=== PATIENT | female | born 1965 | race Caucasian/White ===

== ENCOUNTER 2019-11-26 15:25 | Inpatient (IN) | payer MEDICAID ==
[~2019-11-26] VITALS: Ht 177.8 cm; Wt 74.8 kg
[2019-11-26 15:59] VITALS: BP 209/111
--- NOTE | 2019-11-26 16:18 | NUR ---
Patient ambulated to bed 8. RN evaluating patient at bedside.
--- NOTE | 2019-11-26 16:55 | NUR ---
53 Y/O FEMALE PRESENTS TO THE ER WITH C/O OF SOB DUE TO LUQ HERNIA. BILATERAL FOOT EDEMA +1 W/ DRY CRACKED FEET, PT STATES HER FEET ARE PAINFUL, AND TTP. RATES PAIN AT 9/10. R/R EQUAL AND UNLABORED, NON-PRODUCTIVE COUGH NOTED. CONGESTION AUDIBLE, BUT LUNGS SOUNDS CLEAR TO AUSCULTATION, IN BILATERAL LUNG. HYPOACTIVE BOWEL SOUNDS IN Q 4 QUADRANTS. C/O NAUSEA, DENIES VOMITUS, OR DIARRHEA. UNABLE TO PALPATE PULSES IN BLE. NKDA PMH: QUADRUPLE BY PASS, CARDIAC WINDOW, AND STENT, HTN, HYPOTHYROIDISM
[2019-11-26] MEDS ORDERED: ASPIRIN 325 MG TAB PO ONE (17:05)
[2019-11-26] MEDS ORDERED: NITROGLYCERIN 0.4 MG TAB SL ONE (17:05)
--- NOTE | 2019-11-26 17:05 | NUR ---
PT BP 209/111, DR. GARCIA NOTIFIED
--- NOTE | 2019-11-26 17:05 | NUR ---
PT GIVEN ONE NITRO SUBLINGUAL PER MD ORDER
[2019-11-26] MEDS ORDERED: LISINOPRIL 20 MG TAB PO ONE (17:25)
[2019-11-26] MEDS ORDERED: ALBUTEROL SULFATE/IPRATROPIU 3 ML SOL IH ONE (17:25)
[2019-11-26 17:53] LABS: BASOPHILS # (AUTO) 0.1 K/uL (0.00-0.22); EOSINOPHILS # (AUTO) 0.1 K/uL (0-0.4); EOSINOPHILS % (AUTO) 1.8 % (0.0-4.0); HEMATOCRIT 39.7 % (36-48); HEMOGLOBIN 13.6 g/dL (12.0-16.0); LYMPHOCYTES # (AUTO) 0.9 K/uL (2.5-16.5); LYMPHOCYTES % (AUTO) 14.2 % (20.5-51.1); MEAN CORPUSCULAR HEMOGLOBIN 31 pg (27-31); MEAN CORPUSCULAR HGB CONC 34 g/dL (33-37); MEAN CORPUSCULAR VOLUME 89.1 fL (80-94); MONOCYTES # (AUTO) 0.3 K/uL (0.8-1.0); MONOCYTES % (AUTO) 4.9 % (1.7-9.3); NEUTROPHILS # (AUTO) 5.1 K/uL (1.8-7.7); NEUTROPHILS % (AUTO) 78.1 % (42.2-75.2); PLATELET COUNT (AUTO) 187 K/uL (140-450); RED BLOOD CELL COUNT(AUTO) 4.45 MIL/uL (4.20-5.40); WHITE BLOOD COUNT (AUTO) 6.5 K/uL (4.8-10.8)
[2019-11-26 18:01] LABS: ALBUMIN 3.6 g/dL (3.4-5.0); ANION GAP 12.6 (8-16); CARBON DIOXIDE 27.5 mmol/L (21-32); CREATININE 1.4 mg/dL (0.6-1.3); POTASSIUM 4.1 mmol/L (3.5-5.1); PROTHROMBIN TIME 9.3 secs (10.8-13.4); TOTAL BILIRUBIN 0.2 mg/dL (0.0-1.0)
--- NOTE | 2019-11-26 18:47 | NUR ---
PT SITTING UPRIGHT, DENIES PAIN AT THIS TIME. R/R UNLABORED AND EQUAL. FAMILY SITTING AT THE BEDSIDE. SIDERAIL X2 WILL CONTINUE TO MONITOR.
[2019-11-26] MEDS ORDERED: hydrALAZINE 20 MG/ML VIAL IVP ONE (18:50)
[2019-11-26] MEDS ORDERED: LISI30TA6 PO (19:15)
[2019-11-26] MEDS ORDERED: SYN.1 PO (19:15)
--- NOTE | 2019-11-26 19:25 | NUR ---
PT DENIES CHEST PAIN AT THIS TIME; STILL HYPERTENSIVE BUT IMPROVED BP AFTER IV HYDRALAZINE 168/103. PT STATES SHE STILL FEELS SOB; BUT THIS HAS IMPROVED SINCE BEING IN THE ER. BREATHING IS MORE DIFFICULT WHEN SITTING UP. LS BILATERALLY DIMINISHED WITH SLIGHT EXP WHEEZES. C/O HUNGER AND ASKING FOR FOOD. WILL CONTINUE TO MONITOR.
[2019-11-26] MEDS ORDERED: DOCUSATE SODIUM 100 MG GELCAP PO PRN (19:55)
[2019-11-26] MEDS ORDERED: HYDROcodone/APAP 7.5/325 MG 1 TAB PO PRN (19:55)
[2019-11-26] MEDS ORDERED: ONDANSETRON 4 MG/2 ML VIAL IM/IVP PRN (19:55)
--- NOTE | 2019-11-26 20:15 | NUR ---
Patient will be admitted to care of DR CARRERA. Admited to TELEMETRY. Will go to room 105A. Belongings list completed. Report to AL SARAVIA.
--- NOTE | 2019-11-26 20:20 | NUR ---
RECEIVED PATIENT FROM ER VIA GURNEY IN STABLE CONDITION. RESPIRATIONS EVEN, UNLABORED. TELE MONITOR IN PLACE. SKIN WARM, DRY. SKIN ASSESSMENT COMPLETED. OLD SCARS ON BILATERAL HEELS NOTED. IV SITE TO LEFT FOREARM 20G PATENT/INTACT. PATIENT IS AMBULATORY. NO C/O PAIN. NO S/SX ACUTE DISTRESS. MRSA SCREEN COMPLETED. PATIENT ORIENTED TO ROOM, CALL LIGHT AND STAFF. ALL NEEDS MET. CALL LIGHT WITHIN REACH. WILL CONTINUE TO MONITOR.
[2019-11-26 20:30] VITALS: BP 135/118
[2019-11-26 20:31] LABS: BARBITURATE, URINE NEG. ng/ml (NEG <=200); BENZODIAZEPINE, URINE NEG. ng/mL (NEG <=200); CANNABINOID, URINE POS. ng/mL (NEG <=50); COCAINE, URINE NEG. ng/mL (NEG <=300); OPIATE, URINE NEG. ng/mL (NEG <=2000); PHENCYCLIDINE SCREEN,URINE NEG. ng/mL (NEG <=25)
[2019-11-26] MEDS ORDERED: NITROGLYCERIN 0.4 MG TAB SL PRN (21:00)
[2019-11-26 21:22] LABS: APPEARANCE,URINE CLEAR (CLEAR); BILIRUBIN,URINE NEGATIVE (NEGATIVE); BLOOD, URINE TRACE-I (NEGATIVE); COLOR,URINE YELLOW (YELLOW); LEUKOCYTE ESTERASE ,URINE NEGATIVE (NEGATIVE); NITRITE, URINE NEGATIVE (NEGATIVE); PH,URINE 6.5 (5.0-9.0); UGLUCOSE NEGATIVE (NEGATIVE)
[2019-11-26] MEDS ORDERED: FUROSEMIDE 40 MG/4 ML VIAL IVP ONE (21:30)
[2019-11-26 21:31] LABS: RBC,URINE 0-5 /HPF (0-5); WBC,URINE 0-5 /HPF (0-5)
[2019-11-26 21:32] LABS: YEAST,URINE Few /HPF (None Seen)
[2019-11-26] MEDS ORDERED: ALBUTEROL SULFATE/IPRATROPIU 3 ML SOL IH PRN (21:35)
[2019-11-26] MEDS: METOPROLOL 25 MG TAB PO SCH (21:36)
[2019-11-26] MEDS ORDERED: cefTRIAXone 1,000 MG VIAL ONE (21:42)
[2019-11-26] MEDS: DEXT 5% /NACL 0.9% 1,000 ML IV SCH (21:48)
[2019-11-26] MEDS ORDERED: KCL 20 MEQ/WATER INJ PREMIX 200 ML IV PRN (21:55)
[2019-11-26] MEDS: NICOTINE TRANSD SYS 14 MG/24 HR PATCH TD SCH (22:10)
[2019-11-26 22:30] LABS: CHOL/HDL RATIO 4.5 (1-4.5); FREE T4 (FREE THYROXINE) 0.31 ng/dL (0.76-1.46); MAGNESIUM 2.2 mg/dL (1.8-2.4); PHOSPHORUS 3.4 mg/dL (2.5-4.9); THYROID STIMULATING HORMONE 335.89 uIU/mL (0.34-3.74)
--- NOTE | 2019-11-26 22:59 | NUR ---
PATIENT ASLEEP IN BED. DUE MEDS GIVEN. IV FLUIDS INFUSING WELL. NO C/O PAIN. NO S/SX ACUTE DISTRESS NOTED. CALL LIGHT WITHIN REACH. WILL CONTINUE TO MONITOR.
[2019-11-26] MEDS ORDERED: LEVOTHYROXINE 0.1 MG TAB PO ONE (23:15)
[2019-11-26] MEDS ORDERED: ATORVASTATIN 20 MG TAB PO ONE (23:20)
[2019-11-26] MEDS: ALBUTEROL SULFATE/IPRATROPIU 3 ML SOL IH SCH (23:40)
[2019-11-27] VITALS: BP 137/88
--- NOTE | 2019-11-27 00:29 | NUR ---
PATIENT RESTING COMFORTABLY IN BED. NO C/O PAIN. NO S/SX ACUTE DISTRESS. DUE MEDS GIVEN. CALL LIGHT WITHIN REACH. WILL CONTINUE TO MONITOR.
--- NOTE | 2019-11-27 01:06 | NUR ---
PATIENT ASLEEP AND IN STABLE CONDITION. NO C/O PAIN. NO S/SX ACUTE DISTRESS. CALL LIGHT WITHIN REACH. WILL CONTINUE TO MONITOR.
--- NOTE | 2019-11-27 01:20 | NUR ---
PT SLEEPING, HR WENT DOWN ON THE 40'S BPM, PT EASILY AROUSABLE, ASYMPTOMATIC, DENIES ANY PAIN, NO SOB NOTED, MONITORED CLOSELY. Addendum: 11/28/19 at 0125 by Iain Glover RN CHARTED WRONG TIME
--- NOTE | 2019-11-27 03:00 | NUR ---
PATIENT ASLEEP AND IN STABLE CONDITION. NO C/O PAIN. NO S/SX ACUTE DISTRESS. CALL LIGHT WITHIN REACH. WILL CONTINUE TO MONITOR.
[2019-11-27 04:00] VITALS: BP 135/75
--- NOTE | 2019-11-27 05:21 | NUR ---
MADE ROUNDS. PATIENT ASLEEP AND IN STABLE CONDITION. NO C/O PAIN. NO S/SX ACUTE DISTRESS. CALL LIGHT WITHIN REACH. WILL CONTINUE TO MONITOR.
[2019-11-27] MEDS: ALBUTEROL SULFATE/IPRATROPIU 3 ML SOL IH SCH ×3 (06:52→20:41)
--- NOTE | 2019-11-27 07:05 | NUR ---
REPORT RECEIVED FROM NIGHT NURSE. PT AWAKE IN BED AAOX4, NO DISTRESS NOTED, DENIES PAIN. RESPIRATIONS EVEN AND UNLABORED ON ROOM AIR. IV IN PLACE IN L AC 20G PATENT AND ASYMPTOMATIC INFUSING PER ORDER. BILATERAL HEEL WOUNDS PRESENT, CLOSED. NPO EXCEPT MEDS STATUS. SAFETY MEASURES IN PLACE. CALL LIGHT WITHIN REACH. BED IN LOW POSITION. WILL CONTINUE TO MONITOR.
[2019-11-27 08:00] VITALS: BP 165/94
[2019-11-27] MEDS ORDERED: FLUCONAZOLE 100 MG TAB PO SCH (08:00)
[2019-11-27 08:03] LABS: ANION GAP 12.7 (8-16); CREATININE 1.4 mg/dL (0.6-1.3); POTASSIUM 3.7 mmol/L (3.5-5.1)
[2019-11-27 08:17] LABS: BASOPHILS # (AUTO) 0.1 K/uL (0.00-0.22); EOSINOPHILS # (AUTO) 0.2 K/uL (0-0.4); EOSINOPHILS % (AUTO) 2.8 % (0.0-4.0); HEMOGLOBIN 14.9 g/dL (12.0-16.0); LYMPHOCYTES # (AUTO) 1.1 K/uL (2.5-16.5); LYMPHOCYTES % (AUTO) 17.6 % (20.5-51.1); MEAN CORPUSCULAR HEMOGLOBIN 31 pg (27-31); MEAN CORPUSCULAR HGB CONC 35 g/dL (33-37); MEAN CORPUSCULAR VOLUME 89.5 fL (80-94); MONOCYTES # (AUTO) 0.3 K/uL (0.8-1.0); MONOCYTES % (AUTO) 4.6 % (1.7-9.3); NEUTROPHILS # (AUTO) 4.6 K/uL (1.8-7.7); PLATELET COUNT (AUTO) 193 K/uL (140-450); RED BLOOD CELL COUNT(AUTO) 4.81 MIL/uL (4.20-5.40); RED CELL DISTRIBUTION WIDTH 14.9 % (11.6-13.7); WHITE BLOOD COUNT (AUTO) 6.4 K/uL (4.8-10.8)
--- NOTE | 2019-11-27 08:29 | NUR ---
PATIENT HAS BEEN SCREENED AND CATEGORIZED MODERATE NUTRITION RISK. PATIENT WILL BE SEEN WITHIN 3-5 DAYS OF ADMISSION. 11/29/19 12/01/[address]
[2019-11-27] MEDS: METOPROLOL 25 MG TAB PO SCH ×2 (09:00→20:37)
[2019-11-27] MEDS: PANTOPRAZOLE 40 MG TABEC PO SCH (09:26)
[2019-11-27] MEDS: FUROSEMIDE 20 MG/2 ML VIAL IVP SCH (09:26)
[2019-11-27] MEDS: ECOTRIN 81 MG TABEC PO SCH (09:26)
[2019-11-27] MEDS: LISINOPRIL 20 MG TAB PO SCH (09:26)
[2019-11-27] MEDS: AZITHROMYCIN 250 MG TAB PO SCH (09:27)
[2019-11-27] MEDS: NICOTINE TRANSD SYS 14 MG/24 HR PATCH TD SCH (09:28)
--- NOTE | 2019-11-27 09:31 | NUR ---
MEDICATIONS ADMINISTERED PER ORDER. PT TOLERATED WELL, NO DISTRESS NOTED. SAFETY MEASURES IN PLACE. CALL LIGHT WITHIN REACH. WILL CONTINUE TO MONITOR.
--- NOTE | 2019-11-27 10:40 | NUR ---
Area Director Of Home Health Sales Note: Basic Screen: Yes High Risk DC Screen [place]: RANULFO Curz Relationship: FRIEND Pre-Admission Living Arrangements: Lives with Other Prior ADL Independent Current Home Health Name/Tel: N/A Current DME/02 Name/Tel: N/A Current Hospice Name/Tel: N/A Current Dialysis Name/Tel: N/A Healthcare Decision Maker: Patient Advance Directive No - REFUSED Physician Orders for Life Sustaining Treatment Form No Patient/Family Have Educational Needs No Information Taught: Community Resources Person Taught: Patient Teaching Tools: Community Resources Computer Generated Print Verbal Factors Affecting Learning: None Participation Level: Active Evaluation: Verbalizes Understanding Needs Additional Education: No Discipline: Case Mgt/Social Svcs Tentative Discharge Plan/Destination: No Needs Identified Will require assistance post discharge: No Referred to Cell Preparer: No Tentative Discharge Plan Summary: Patient is a 53-year-old female admitted for hypertensive emergency. Patient has PMHX of hypertension, cardiac disorders, aortic aneurism, hypothyroidism, COPD, and hiatal hernia. Patient was admitted from home where she lives with roommates. SW met with patient at bedside to verify demographics. Patient stated that she lives with multiple roommates rent free while she is in the process of arranging her SSI. SW inquired about any government aid that patient receives. Patient stated she recieves $221 from [facility] and $124 for food. Patient stated that she has an appointment with an SSI advocate on December 28, 2019. SW provided patient room and boards to consider when making her living arrangements. Patient reported marijuana use and occasional methamphetamine use. SW provided substance abuse resources. Patient verbalized appreciation. Patient's tentative plan after discharge is to return home while she coordinates her SSI. No further needs identified. Signature: BRENDA Rivas Date: Nov 27, 2019 Time: 10:34
--- NOTE | 2019-11-27 11:41 | NUR ---
VITAL SIGNS TAKEN AT THIS TIME. RESPIRATIONS EVEN AND UNLABORED ON ROOM AIR. NO DISTRESS NOTED. WILL CONTINUE TO MONITOR.
[2019-11-27 12:00] VITALS: BP 192/93
--- NOTE | 2019-11-27 13:59 | NUR ---
ROUNDS DONE AT THIS TIME. PT IN BED, ASLEEP. NO SIGNS OF DISTRESS NOTED. SAFETY MEASURES IN PLACE. CALL LIGHT WITHIN REACH, WILL CONTINUE TO MONITOR.
--- NOTE | 2019-11-27 14:03 | NUR ---
DISCHARGE PLANNING: THIS IS A 53 Y/O FEMALE PATIENT FROM HOME, WHO CAME IN DUE TO SHORTNESS OF BREATH. PAST MEDICAL HISTORY INCLUDE HTN, CARDIAC DISORDERS, AORTIC ANEURYSM, HYPOTHYROIDISM, COPD AND HIATAL HERNIA. INITIAL DIAGNOSIS OF HYPERTENSIVE EMERGENCY. CURRENT LABS INCLUDE WBC 6.4, H/H 14.9/43.0, NA/K 138/3.7, 25/1.4BUN/CREA, TROP 0.106. MRSA NARES AND URINE C/S PENDING. ON ROCEPHIN AND AZITHROMYCIN. CARDIO CONSULT IN PLACE. UDS SHOWED AMPHETAMINE (+). DC PLAN BACK TO HOME ONCE STABLE.
[2019-11-27 16:00] VITALS: BP 192/93
--- NOTE | 2019-11-27 16:12 | NUR ---
VITAL SIGNS TAKEN AT THIS TIME. NO DISTRESS NOTED. SAFETY MEASURES IN PLACE. CALL LIGHT WITHIN REACH. WILL CONTINUE TO MONITOR.
[2019-11-27] MEDS ORDERED: ATORVASTATIN 20 MG TAB PO SCH ×2 (17:00)
[2019-11-27] MEDS: cloNIDine 0.1 MG TAB PO PRN (17:54)
[2019-11-27] MEDS: ACETAMINOPHEN 325 MG TAB PO PRN (17:55)
--- NOTE | 2019-11-27 17:57 | NUR ---
MEDICATION ADMINISTERED PER ORDER. CLONIDINE PRN GIVEN FOR ELEVATED BP. PT TOLERATED WELL, NO DISTRESS NOTED. WILL CONTINUE TO MONITOR.
[2019-11-27] MEDS: DEXT 5% /NACL 0.9% 1,000 ML IV SCH ×2 (18:20→20:39)
--- NOTE | 2019-11-27 19:10 | NUR ---
REPORT GIVEN TO NIGHT NURSE FOR CONTINUITY OF CARE.
--- NOTE | 2019-11-27 19:12 | NUR ---
RECEIVED PT SLEEPING, EASILY AROUSABLE, AAOX4, VITAL SIGNS STABLE, DENIES CHEST PAIN, NO SOB NOTED, IVF INFUSING WELL, PLAN OF CARE DISCUSSED, SAFETY MEASURES IN PLACE, CALL LIGHT WITHIN REACH.
[2019-11-27 20:00] VITALS: BP 136/76
--- NOTE | 2019-11-27 20:50 | NUR ---
RECEIVED PT FROM AM SHIFT. PT IN NO APPARENT RESPIRATORY DISTRESS AT THIS TIME; HR 50, RR 16, SPO2 95% ON ROOM AIR, AND A CLEAR BREATH SOUNDS. HHN TX GIVEN ORDERED WITH NO ADVERSE REACTION. WILL CONTINUE TO MONITOR PT.
--- NOTE | 2019-11-27 20:50 | NUR ---
DUE MEDS ADMINISTERED WITH EDUCATION PROVIDED, PT AMBULATED TO BR WITH STEADY GAIT, ALL NEEDS ATTENDED.
--- NOTE | 2019-11-27 22:30 | NUR ---
PT SLEEPING, HR WENT DOWN ON THE 40'S BPM, PT EASILY AROUSABLE, ASYMPTOMATIC, DENIES ANY PAIN, NO SOB NOTED, MONITORED CLOSELY.
[2019-11-27] MEDS ORDERED: INFLUENZA VACCINE QUAD 0.5 ML SYR IMVAC PRN (23:40)
[2019-11-28] VITALS: BP 123/81
[2019-11-28] MEDS: ALBUTEROL SULFATE/IPRATROPIU 3 ML SOL IH SCH ×2 (01:29→08:28)
--- NOTE | 2019-11-28 01:41 | NUR ---
SCHEDULED BREATHING TREATMENT ADMINISTERED. TOLERATED TX WELL WITHOUT ADVERSE SIDE EFFECTS. NO ACUTE RESPIRATORY DISTRESS NOTED AT THIS TIME. WILL CONTINUE TO MONITOR.
[2019-11-28 04:00] VITALS: BP 118/76
--- NOTE | 2019-11-28 04:10 | NUR ---
PT SLEEPING, EASILY AROUSABLE, VITAL SIGNS STABLE, HR IN THE 40'S, ASYMPTOMATIC, DENIES ANY CHEST AND SOB, IVF INFUSING WELL, MONITORED CLOSELY.
[2019-11-28 07:11] LABS: BASOPHILS # (AUTO) 0.1 K/uL (0.00-0.22); BASOPHILS % (AUTO) 1.9 % (0.0-2.0); EOSINOPHILS # (AUTO) 0.1 K/uL (0-0.4); EOSINOPHILS % (AUTO) 1.4 % (0.0-4.0); HEMATOCRIT 41.1 % (36-48); HEMOGLOBIN 13.8 g/dL (12.0-16.0); LYMPHOCYTES # (AUTO) 0.9 K/uL (2.5-16.5); LYMPHOCYTES % (AUTO) 11.8 % (20.5-51.1); MEAN CORPUSCULAR HEMOGLOBIN 31 pg (27-31); MEAN CORPUSCULAR HGB CONC 34 g/dL (33-37); MEAN CORPUSCULAR VOLUME 91.2 fL (80-94); MONOCYTES # (AUTO) 0.4 K/uL (0.8-1.0); MONOCYTES % (AUTO) 4.9 % (1.7-9.3); NEUTROPHILS # (AUTO) 6.2 K/uL (1.8-7.7); PLATELET COUNT (AUTO) 178 K/uL (140-450); RED BLOOD CELL COUNT(AUTO) 4.51 MIL/uL (4.20-5.40); RED CELL DISTRIBUTION WIDTH 15.4 % (11.6-13.7); WHITE BLOOD COUNT (AUTO) 7.8 K/uL (4.8-10.8)
--- NOTE | 2019-11-28 07:20 | NUR ---
PT AWAKE, NO SIGNS OF DISTRESS, REPORT GIVEN TO AL SINGH FOR CONTINUITY OF CARE.
[2019-11-28 07:24] LABS: MAGNESIUM 2.2 mg/dL (1.8-2.4); PHOSPHORUS 3.8 mg/dL (2.5-4.9)
[2019-11-28 07:26] LABS: ANION GAP 10.5 (8-16); CARBON DIOXIDE 29.5 mmol/L (21-32); CREATININE 1.9 mg/dL (0.6-1.3)
--- NOTE | 2019-11-28 07:29 | NUR ---
PT IS IN BED AT THIS TIME. NO DISTRESS NOTED. BUT NOTED WITH ELEVATED BLOOD PRESSURE. WILL CONTINUE TO MONITOR. CALL LIGHT IN REACH.
[2019-11-28 08:00] VITALS: BP 176/97
[2019-11-28] MEDS ORDERED: LEVOTHYROXINE 0.1 MG TAB PO SCH (08:00)
[2019-11-28] MEDS ORDERED: LISI-420 PO (08:28)
[2019-11-28] MEDS ORDERED: METO25TA PO (08:28)
[2019-11-28] MEDS ORDERED: FURO-572 PO (08:28)
[2019-11-28] MEDS: AZITHROMYCIN 250 MG TAB PO SCH (08:34)
[2019-11-28] MEDS: LISINOPRIL 20 MG TAB PO SCH (08:34)
[2019-11-28] MEDS: ECOTRIN 81 MG TABEC PO SCH (08:34)
[2019-11-28] MEDS: PANTOPRAZOLE 40 MG TABEC PO SCH (08:35)
[2019-11-28] MEDS: FUROSEMIDE 20 MG/2 ML VIAL IVP SCH (08:35)
[2019-11-28] MEDS: METOPROLOL 25 MG TAB PO SCH (08:35)
[2019-11-28] MEDS: NICOTINE TRANSD SYS 14 MG/24 HR PATCH TD SCH (08:36)
--- NOTE | 2019-11-28 09:30 | NUR ---
PT IS IN BED AT THIS TIME. PT IS RESTING WITH NO SIGNS OF DISTRESS OR COMPLAINS OF PAIN. WILL CONTINUE TO MONITOR. CALL LIGHT IN REACH.
[2019-11-28] MEDS ORDERED: LEVO0.2T5 PO (10:14)
[2019-11-28] MEDS: cloNIDine 0.1 MG TAB PO PRN (10:51)
[2019-11-28 12:00] VITALS: BP 156/72
--- NOTE | 2019-11-28 12:00 | NUR ---
PT IS IN BED AT THIS TIME. PT COMPLAINS OF MILD HEAD ACHE. WILL MEDICATE PATIENT. CALL LIGHT IN REACH.
[2019-11-28] MEDS: ACETAMINOPHEN 325 MG TAB PO PRN (12:19)
[2019-11-28 12:21] VITALS: BP 158/84
--- NOTE | 2019-11-28 13:20 | NUR ---
PT WAS GIVEN DISCHARGE INSTRUCTIONS TODAY. PT HAD HIGH BLOOD PRESSURE AND WAS GIVEN CLONIDINE. REASSESSMENT DONE AT 1222 AND NOTED WITH BLOOD PRESSURE AT 158/82, PULSE 45. NOTIFIED DR RODAS AND GIVEN OKAY TO DISCHARGE PATIENT. TOLD PATIENT THAT SHE CAN GO NOW. PATIENT REQUESTED ME TO CALL HER CONTACTS SO SHE CAN GET A RIDE HOME. PER PATIENTS REQUEST CALLED HER CONTACTS THAT WAD DOCUMENTED IN THE CONTACT INFO UNDER SUMMARY. CALL WAS NOT ANSWERED. PT SAID IS THERE ANY MEANS PROVIDED BY THE HOSPITAL FOR HER TRANSPORT. CALLED MARKET ANALYST [employer]. PER CM BUS PASS WAS AVAILABLE. PT HEARD ABOUT THE BUS PASS AND GOT VERY UPSET SAYING SHE DOES NOT HAVE CLOTHES AND CANNOT GO BY BUS. CHARGE NURSE CALLED [employer] AND ARRANGED FOR CLOTHES. AT THIS TIME PATIENT WAS GETTING AGITATED AND REQUESTED ME TO TAKE OUT HER IV. COMPLIED WITH PATIENTS REQUEST AND REMOVED ID BAND AND IV. NO ACTIVE BLEEDING NOTED. PT REFUSED TO TAKE CLOTHES FROM [employer]. PT WAS ACCOMPANIED BY SECURITY TO EXIT. PT REFUSED TO SIGN DISCHARGE PAPERS AND TOLD ME THAT IF SOMETHING HAPPENED TO HER THAT I WAS RESPONSIBLE. SECURITY WAS WITH PATIENT AT THIS TIME. PT WALKED WITH A STEADY GAIT TO EXIT ACCOMPANIED BY PATIENT.
[2019-11-29 09:53] LABS: T3 UPTAKE 14 % (24 - 39); T4 (THYROXINE) <0.5 ug/dL (4.5 - 12.0)
== END 2019-11-28 13:20 | disposition home or self-care (01) | DRG 199 ==
LOC: MED 15:25 → MTU 19:49
PROVIDERS: ADMIT General Practice; ATTEND General Practice
DX: I16.1 Hypertensive emergency (principal); N17.0 Acute kidney failure with tubular necrosis; I21.A1 Myocardial infarction type 2; I11.0 Hypertensive heart disease with heart failure; I50.43 Acute on chronic combined systolic (congestive) and diastolic (congestive) heart failure; I25.10 Atherosclerotic heart disease of native coronary artery without angina pectoris; R74.0 Nonspecific elevation of levels of transaminase and lactic acid dehydrogenase [LDH]; F19.10 Other psychoactive substance abuse, uncomplicated; K21.9 Gastro-esophageal reflux disease without esophagitis; E78.2 Mixed hyperlipidemia; I45.10 Unspecified right bundle-branch block; R00.1 Bradycardia, unspecified; F15.10 Other stimulant abuse, uncomplicated; J44.9 Chronic obstructive pulmonary disease, unspecified; E03.9 Hypothyroidism, unspecified; F17.200 Nicotine dependence, unspecified, uncomplicated; K44.9 Diaphragmatic hernia without obstruction or gangrene; T46.4X6A Underdosing of angiotensin-converting-enzyme inhibitors, initial encounter; Y92.89 Other specified places as the place of occurrence of the external cause; Z95.1 Presence of aortocoronary bypass graft; Z83.6 Family history of other diseases of the respiratory system; Z82.49 Family history of ischemic heart disease and other diseases of the circulatory system; Z71.51 Drug abuse counseling and surveillance of drug abuser; Z71.6 Tobacco abuse counseling
CPT/HCPCS: 36415; 71045; 80048; 80053; 80305; 81001; 82150; 83036; 83690; 83735; 83880; 84100; 84436; 84439; 84443; 84479; 84484; 85025; 85610; 85730; 87081; 87086; 87804; 93005; 94640; 96374; 99291; J0360; J0696; J1644; J1940; J3480; J7042; J7060; J7620

== ENCOUNTER 2022-09-07 08:33 | Emergency (ER) | payer MEDICAID ==
[~2022-09-07] VITALS: Ht 172.7 cm; Wt 108.9 kg
[~2022-09-07 08:33] MED LIST: FURO-572 PO; LEVO0.2T5 PO; LISI-487 PO; METO25TA PO
[2022-09-07 08:44] VITALS: BP 134/103
--- NOTE | 2022-09-07 11:20 | NUR ---
MEDICAL STUDENT AT BEDSIDE.
--- NOTE | 2022-09-07 11:31 | NUR ---
56 Y/O F BIBA FROM HOME C/O LOWER ABD PAIN 10/10 THAT STARTED FROM HER LOWER BACK ONE WEEK AGO. PT C/O NAUSEA BUT NO VOMITTING. PT WAS GIVEN 30 MG TORADOL IM BY FIRE DEPARTMENT PER EMS. NKA PMH: CABG 2014, HTN, THYROID DISEASE
--- NOTE | 2022-09-07 11:43 | NUR ---
DR TONG AT BEDSIDE.
--- NOTE | 2022-09-07 12:16 | NUR ---
PT BACK FROM CT SCAN.
[2022-09-07 12:38] LABS: APPEARANCE,URINE CLEAR (CLEAR); BILIRUBIN,URINE 1+ (NEGATIVE); BLOOD, URINE 2+ (NEGATIVE); COLOR,URINE YELLOW (YELLOW); LEUKOCYTE ESTERASE ,URINE TRACE (NEGATIVE); NITRITE, URINE NEGATIVE (NEGATIVE); UGLUCOSE TRACE (NEGATIVE)
[2022-09-07 12:40] LABS: BASOPHILS # (AUTO) 0.1 K/uL (0.00-0.22); BASOPHILS % (AUTO) 0.5 % (0.0-2.0); EOSINOPHILS % (AUTO) 0.4 % (0.0-4.0); HEMATOCRIT 49.2 % (36-48); HEMOGLOBIN 16.4 g/dL (12.0-16.0); LYMPHOCYTES # (AUTO) 1.2 K/uL (2.5-16.5); LYMPHOCYTES % (AUTO) 9.6 % (20.5-51.1); MEAN CORPUSCULAR HEMOGLOBIN 31 pg (27-31); MEAN CORPUSCULAR HGB CONC 33 g/dL (33-37); MEAN CORPUSCULAR VOLUME 92.4 fL (80-94); MONOCYTES # (AUTO) 0.9 K/uL (0.8-1.0); NEUTROPHILS # (AUTO) 10.4 K/uL (1.8-7.7); NEUTROPHILS % (AUTO) 82.5 % (42.2-75.2); PLATELET COUNT (AUTO) 210 K/uL (140-450); RED BLOOD CELL COUNT(AUTO) 5.33 MIL/uL (4.20-5.40); RED CELL DISTRIBUTION WIDTH 14.7 % (11.6-13.7); WHITE BLOOD COUNT (AUTO) 12.6 K/uL (4.8-10.8)
[2022-09-07 13:05] LABS: ANION GAP 15.7 (8-16); CARBON DIOXIDE 24.9 mmol/L (21-32); CREATININE 1.9 mg/dL (0.6-1.3); POTASSIUM 4.6 mmol/L (3.5-5.1); TOTAL BILIRUBIN 0.5 mg/dL (0.0-1.0)
[2022-09-07 13:18] LABS: WBC,URINE 0-5 /HPF (0-5)
[2022-09-07 13:19] LABS: HYALINE CASTS, URINE 0-10 /LPF (None Seen)
[2022-09-07] MEDS ORDERED: CIPR500T4 PO (13:44)
[2022-09-07] MEDS ORDERED: METR-435 PO (13:44)
[2022-09-07] MEDS ORDERED: BEN10 PO (13:44)
[2022-09-07 13:54] VITALS: BP 136/108
--- NOTE | 2022-09-07 13:55 | NUR ---
Patient discharged with v/s stable. Written and verbal after care instructions given and explained. Patient alert, oriented and verbalized understanding of instructions. Ambulatory with steady gait. All questions addressed prior to discharge. ID band removed. Patient advised to follow up with PMD. Rx of DICYCLOMINE HYDROCHLORIDE, CIPROFLOXACIN, METRONIDAZOLE given. Opportunity to ask questions provided and answered.
[2022-09-09] MEDS ORDERED: CIPR500T4 PO (01:26)
[2022-09-09] MEDS ORDERED: METR500S14 PO (01:27)
[2022-09-09] MEDS ORDERED: BEN10 PO (01:29)
[2022-09-09] MEDS ORDERED: BUDE1AER IH (01:29)
[2022-09-09] MEDS ORDERED: PRON INH (01:29)
== END 2022-09-07 13:55 | disposition home or self-care (01) ==
LOC: MED 08:33
DX: K52.9 Noninfective gastroenteritis and colitis, unspecified (principal); I10 Essential (primary) hypertension; I25.10 Atherosclerotic heart disease of native coronary artery without angina pectoris; E03.9 Hypothyroidism, unspecified; Z79.899 Other long term (current) drug therapy; Z98.890 Other specified postprocedural states
CPT/HCPCS: 36415; 80053; 81001; 81025; 83690; 85025; 99284